=== PATIENT | female | born 1955 | race Hispanic/Latino ===

== ENCOUNTER 2021-01-17 11:27 | Emergency (ER) | payer MEDICARE ==
[~2021-01-17] VITALS: Ht 170.2 cm; Wt 64.9 kg
[2021-01-17 11:29] VITALS: BP 120/60
[2021-01-17 11:53] LABS: BASOPHILS % (AUTO) 0.6 % (0.0-5.0); EOSINOPHILS % (AUTO) 0.2 % (0.0-8.0); HEMATOCRIT 40.9 % (36-48); MEAN CORPUSCULAR HEMOGLOBIN 28.2 pg (27.0-33.0); MEAN CORPUSCULAR HGB CONC 32.8 g/dL (32.0-36.0); MEAN CORPUSCULAR VOLUME 86.1 fL (79-99); MONOCYTES % (AUTO) 9.4 % (3.0-13.0); NEUTROPHILS % (AUTO) 70.5 % (40.0-77.0); PLATELET COUNT (AUTO) 241 K/uL (130-400); RED BLOOD CELL COUNT(AUTO) 4.75 MIL/uL (4.00-5.50); RED CELL DISTRIBUTION WIDTH 14.3 % (11.0-15.5); WHITE BLOOD COUNT (AUTO) 6.3 K/uL (4.8-10.8)
[2021-01-17 12:07] LABS: ALBUMIN 4.1 g/dL (3.5-5.0); BILIRUBIN,TOTAL 0.5 mg/dL (0.2-1.0); CREATININE 0.9 mg/dL (0.5-1.5); POTASSIUM 4.7 mmol/L (3.5-5.1); TOTAL PROTEIN, SERUM 8.1 g/dL (6.0-8.3)
[2021-01-17 13:55] LABS: CREATINE KINASE, TOTAL 104 U/L (21-232); MYOGLOBIN 39 ng/mL (10-92); TROPONIN I < 0.04 ng/mL (0.00-0.06)
[2021-01-17] MEDS ORDERED: IOHEXOL-350 75 ML VIAL IV ONE (14:25)
[2021-01-17] MEDS ORDERED: IOHEXOL-350 50ML VIAL IV ONE (14:51)
[2021-01-17 16:16] VITALS: BP 135/74
== END 2021-01-17 16:19 | disposition home or self-care (01) ==
LOC: EDH 11:40
DX: R79.89 Other specified abnormal findings of blood chemistry (principal); R06.02 Shortness of breath; E78.00 Pure hypercholesterolemia, unspecified; Z96.642 Presence of left artificial hip joint; Z95.4 Presence of other heart-valve replacement
CPT/HCPCS: 36415; 71275; 80053; 82550; 83874; 83880; 84484; 85025; 93005; 99285; Q9967 ×2

== ENCOUNTER → 2021-02-21 | Outpatient (CLI) | payer MEDICARE ==
[~2021-02-21] MED LIST: REGADENOSON 0.4 MG/5 ML PF SYG IVP SCH
== END | disposition home or self-care (01) ==
LOC: SHCH 07:54
PROVIDERS: ATTEND Internal Medicine Cardiovascular Disease
DX: R94.31 Abnormal electrocardiogram [ECG] [EKG] (principal); R93.1 Abnormal findings on diagnostic imaging of heart and coronary circulation; R20.2 Paresthesia of skin
CPT/HCPCS: 78452; 93017; 96374; A9500 ×2; J2785

== ENCOUNTER 2021-03-29 06:20 | Observation (INO) | payer MEDICARE ==
[2021-03-28 08:52] LABS: BASOPHILS % (AUTO) 0.8 % (0.0-5.0); EOSINOPHILS % (AUTO) 3.7 % (0.0-8.0); HEMATOCRIT 41.2 % (36-48); LYMPHOCYTES % (AUTO) 26.3 % (21.0-51.0); MEAN CORPUSCULAR HEMOGLOBIN 29.2 pg (27.0-33.0); MEAN CORPUSCULAR HGB CONC 31.6 g/dL (32.0-36.0); MEAN CORPUSCULAR VOLUME 92.6 fL (79-99); MONOCYTES % (AUTO) 10.3 % (3.0-13.0); NEUTROPHILS % (AUTO) 58.7 % (40.0-77.0); PLATELET COUNT (AUTO) 164 K/uL (130-400); RED BLOOD CELL COUNT(AUTO) 4.45 MIL/uL (4.00-5.50); RED CELL DISTRIBUTION WIDTH 14.3 % (11.0-15.5); WHITE BLOOD COUNT (AUTO) 4.9 K/uL (4.8-10.8)
[2021-03-28 09:02] LABS: APPEARANCE,URINE Clear (CLEAR); BILIRUBIN,URINE Negative (NEGATIVE); COLOR,URINE Yellow (YELLOW); GLUCOSE, URINE (UA) Negative (NEGATIVE); KETONES,URINE Negative (NEGATIVE); LEUKOCYTE ESTERASE ,URINE Negative (NEGATIVE); NITRATE,URINE Negative (NEGATIVE); OCCULT BLOOD,URINE Negative (NEGATIVE); PROTEIN,URINE Negative (NEGATIVE); UROBILINOGEN,URINE 0.2 mg/dL (0.2-1.0)
[2021-03-28 09:04] LABS: INR 1.04 (0.85-1.15); PROTHROMBIN TIME 11.3 SEC (9.6-11.6)
[2021-03-28 09:06] LABS: PARTIAL THROMBOPLASTIN TIME 26.8 SEC (26.3-35.5)
[2021-03-28 09:10] LABS: CREATININE 0.9 mg/dL (0.5-1.5); POTASSIUM 4.3 mmol/L (3.5-5.1)
[2021-03-28 12:13] VITALS: BP 119/60
[2021-03-29] VITALS (11 sets, daily range): BP systolic 93–129; BP diastolic 43–67
[~2021-03-29] VITALS: Ht 170.2 cm; Wt 72.8 kg
[~2021-03-29 06:20] MED LIST changes: +AEC81 PO; +CALC-909 PO; +CITA-107 PO; +FISH1CAP50 PO; +NITR0.4T50 SL; -REGADENOSON 0.4 MG/5 ML PF SYG IVP SCH; +ROSU10TA28 PO
[2021-03-29] MEDS ORDERED: 0.9%NACL 1000ML 1,000 ML IV ONE (06:39)
[2021-03-29] MEDS ORDERED: NITROGLYCERIN 2 MG VIAL IV ONE (07:20)
[2021-03-29] MEDS ORDERED: MIDAZOLAM HCL 1 MG/ML 2ML VIAL ONE (07:20)
[2021-03-29] MEDS ORDERED: BIVALIRUDIN 250 MG/VIAL IV ONE (07:20)
[2021-03-29] MEDS ORDERED: LIDOCAINE HCL 400MG/20ML VIAL ONE (07:21)
[2021-03-29] MEDS ORDERED: IOHEXOL 350 MG/ML 100ML INFUS..BTL IV ONE ×2 (07:25→08:36)
[2021-03-29] MEDS ORDERED: IOHEXOL-350 50ML VIAL IV ONE (07:25)
[2021-03-29] MEDS ORDERED: CLOPIDOGREL 300MG TAB ONE (08:36)
[2021-03-29] MEDS ORDERED: ASPIRIN 325MG EC TAB PO ONE (08:36)
[2021-03-29] MEDS ORDERED: 0.9%NACL 1000ML 1,000 ML IV SCH (10:00)
[2021-03-29] MEDS ORDERED: NITROGLYCERIN 0.4 MG SL TAB SL PRN (10:00)
[2021-03-29] MEDS ORDERED: NITROGLYCERIN 50MG/D5W 250ML 1 BOT IV PRN (10:00)
[2021-03-29] MEDS ORDERED: ONDANSETRON 4MG INJ IVP PRN (10:00)
[2021-03-29] MEDS ORDERED: TEMAZEPAM 30 MG CAP PO PRN (10:00)
[2021-03-29] MEDS ORDERED: ATORVASTATIN 20 MG TABLET PO SCH (21:00)
[2021-03-29] MEDS ORDERED: CITALOPRAM 20 MG TABLET PO SCH (21:00)
[2021-03-30 03:05] VITALS: BP 101/54
[2021-03-30 03:59] LABS: HEMATOCRIT 35.6 % (36-48); MEAN CORPUSCULAR HEMOGLOBIN 30.5 pg (27.0-33.0); MEAN CORPUSCULAR HGB CONC 33.1 g/dL (32.0-36.0); RED BLOOD CELL COUNT(AUTO) 3.87 MIL/uL (4.00-5.50); RED CELL DISTRIBUTION WIDTH 14.5 % (11.0-15.5); WHITE BLOOD COUNT (AUTO) 4.9 K/uL (4.8-10.8)
[2021-03-30 04:27] LABS: HEMOGLOBIN A1C 5.6 % (4.0-6.0)
[2021-03-30 04:28] LABS: CREATININE 0.9 mg/dL (0.5-1.5); POTASSIUM 4.4 mmol/L (3.5-5.1)
[2021-03-30] MEDS ORDERED: CLOP75TA14 PO (07:44)
[2021-03-30 08:00] VITALS: BP 109/62
[2021-03-30] MEDS ORDERED: ASPIRIN 81MG CHEW TAB PO SCH (09:00)
[2021-03-30] MEDS ORDERED: CLOPIDOGREL 75MG TAB PO SCH (09:00)
[2021-03-30] MEDS ORDERED: ASPIRIN 81 MG EC TAB PO SCH (09:00)
[2021-03-30 12:00] VITALS: BP 115/56
== END 2021-03-30 14:30 | disposition home or self-care (01) ==
LOC: DAH 06:20 → DAHIP 06:21 → INTOOBSV 06:21 → OBSVTOIN 06:21 → DAH 06:21 → 4BH 10:21
PROVIDERS: ADMIT Internal Medicine Critical Care Medicine; ATTEND Internal Medicine Critical Care Medicine
DX: I25.119 Atherosclerotic heart disease of native coronary artery with unspecified angina pectoris (principal); R94.39 Abnormal result of other cardiovascular function study; I25.2 Old myocardial infarction; I25.5 Ischemic cardiomyopathy; E78.5 Hyperlipidemia, unspecified; I10 Essential (primary) hypertension; Z79.02 Long term (current) use of antithrombotics/antiplatelets; Z95.3 Presence of xenogenic heart valve; Z79.82 Long term (current) use of aspirin; Z96.649 Presence of unspecified artificial hip joint; Z98.61 Coronary angioplasty status; Z95.1 Presence of aortocoronary bypass graft; Z79.899 Other long term (current) drug therapy; Z98.890 Other specified postprocedural states
CPT/HCPCS: 36415; 71045; 80048; 80061; 81003; 83036; 84484; 85025; 85027; 85610; 85730; 93005; 93458; 93567; 96360; 96361; A4606; C1760; C1769; C1887; C1894; C9600; G0378; J0583; J1644; J2250; J3490; J7030; Q9967